=== PATIENT | female | born 1980 | race Caucasian/White ===

== ENCOUNTER → 2022-10-04 11:51 | Outpatient (CLI) | payer OTHER, SELFPAY ==
--- NOTE | ~2022-10-04 | MM_ITS ---
EXAMINATION: MM screening ananth BI w loren HISTORY: Screening TECHNIQUE: Craniocaudal and mediolateral oblique 3-D tomosynthesis images were obtained and synthetic 2-D images were generated. CAD analysis was submitted and interpreted. COMPARISON: No prior mammogram is available for comparison at this institution. BREAST PARENCHYMAL COMPOSITION: There are scattered areas of fibroglandular density. FINDINGS: There is no evidence of suspicious mass, calcification, or architectural distortion to sugg est malignancy in either breast. There has been no suspicious interval change. IMPRESSION: 1. No mammographic evidence of malignancy. 2. Recommend routine screening mammography in one year. BI-RADS Category 1: Negative Reviewed, dictated and finalized at location A. 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
== END ==
PROVIDERS: PCP Obstetrics & Gynecology; Visit Provider Obstetrics & Gynecology
DX: Z12.31 Encounter for screening mammogram for malignant neoplasm of breast (principal)
CPT/HCPCS: 77063; 77067

== ENCOUNTER 2024-01-17 11:04 | Outpatient (CLI) | payer OTHER, SELFPAY ==
--- NOTE | ~2024-01-17 | MM_ITS ---
EXAMINATION: MM screening ananth BI w loren HISTORY: Screening mammogram TECHNIQUE: Craniocaudal and mediolateral oblique 3-D tomosynthesis images were obtained and synthetic 2-D images were generated. Bilateral rotated lateral CC views. CAD analysis was submitted and interp reted. COMPARISON: October 04, 2022 bilateral screening mammogram BREAST PARENCHYMAL COMPOSITION: There are scattered areas of fibroglandular density. FINDINGS: There is no evidence of suspicious mass, calcification, or architectural distortion to sugg est malignancy in either breast. There has been no suspicious interval change. IMPRESSION: 1. No mammographic evidence of malignancy. 2. Recommend routine screening mammography in one year. BI-RADS Category 1: Negative Reviewed, dictated and finalized at location B.
== END 2024-01-17 11:05 ==
LOC: MICIMG 11:07
PROVIDERS: PCP Obstetrics & Gynecology; Visit Provider Obstetrics & Gynecology
DX: Z12.31 Encounter for screening mammogram for malignant neoplasm of breast (principal)
CPT/HCPCS: 77063; 77067

== ENCOUNTER 2025-05-19 13:40 | Outpatient (CLI) | payer OTHER, SELFPAY ==
--- NOTE | ~2025-05-19 | MM_ITS ---
EXAMINATION: MM screening ananth BI w loren HISTORY: Screening TECHNIQUE: Craniocaudal and mediolateral oblique 3-D tomosynthesis images were obtained and synthetic 2-D images were generated. CAD analysis was submitted and interpreted. COMPARISON: 10/04/2022 BREAST PARENCHYMAL COMPOSITION: There are scattered areas of fibroglandular density. FINDINGS: There is no evidence of suspicious mass, calcification, or architectural distortion in either breast to suggest malignancy. There has been no significant interval change. IMPRESSION: 1. No mammographic evidence of malignancy. Recommend routine screening mammography in one year. BI-RADS Category 1: Negative Reviewed, dictated and finalized at location Q. IMPRESSION: 1. No mammographic evidence of malignancy. Recommend routine screening mammogra phy in one year. BI-RADS Category 1: Negative
--- OUTSIDE RECORDS SUMMARY | 2025-05-19 13:42 | XMS_ITS | Clinical Summary ---
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 This disclosure is being madepursuant to the Care Everywhere program and may not contain all information available regarding this patient. Last updated 18.[facility] Preventes.fr Allergies No known active allergies Medications * Be aware that medications may not be up to date on this document. Alwaysverify current medications with the patient. No known medications Active Problems Patient Care Coordination No te Formatting of this note migh t be different from the original. Nopp/mfcc 11/2018 Problem Noted Date Diagnosed Date daughter w/ Rett syndrome 04/03/2018 Advanced maternal age in multigravida, second tr imester Screening, , for anatomic survey Encounter for screening for cervical l ength Immunizations Immunization Administration Dates Next Due INFLUENZA VACCINE, QUADR. (F LUZONE; FLULAVAL; FLUARIX; AFLURIA QUADRIVALENT; 6MO+), 0.5 ML (IIV4) 07/03/2018 TDAP (7yrs+) 03/02/2019 Social History Tobacco Use Types Packs/Day Years Used Date Smoking Tobacco: Never Assessed Comments No Sex and Gender Information Value Date Recorded Sex Assigned at Not on file Legal Sex Female 9:35 AM CDT Gender Identity Not on file Sexual Orientation Not on file Plan of Treatment Health Maintenance Due Date Last Done Comments COLOGUARD (AGES 45-75) - COL ON CA SCREENING 1979 COLON MONITORING 1979 COLONOSCOPY - COLON CA SCREENING 1979 CT COLONOGRAPHY - COLON CA SCREENING 1979 Colorectal Cancer Screening 1979 FIT - COLON CA SCREENING 1979 FLEX SIG - COLON CA SCREENING 1979 LIPID TESTING 1979 MAMMOGRAM 1979 HIV SCREENING 12/08/1994 HEPATITIS C SCREENING 12/04/1997 HEPATITIS B VACCINE (1 of 3 - 19+ 3-dose series) 12/08/1998 HPV VACCINE (1 - 3-dose SCDM series) 12/08/2006 DEPRESSION SCREENING 09/01/2024 COVID-19 VACCINE (2023-2 5 season) 2025 INFLUENZA VACCINE (#1) 2025 07/03/2018 DTAP/TDAP/TD VACCINES (2 - T d or Tdap) 03/02/2029 03/02/2019 ZOSTER VACCINE (1 of 2) 12/08/2029 HIB VACCINE Aged Out No longer eligi ble based on patient's age to complete this topic MENINGOCOCCAL (Group B) VACC INE SHARED DECISION-MAKING Aged Out No longer eligibl e based on patient's age to complete this topic MENINGOCOCCAL GROUPS A/C/Y/W VACCINE Aged Out No longer eligible b ased on patient's age to complete this topic PNEUMOCOCCAL VACCINE Aged Out No long er eligible based on patient's age to complete this topic Insurance AETNA AETNA
== END 2025-05-19 13:41 | disposition home or self-care (01) ==
PROVIDERS: PCP Obstetrics & Gynecology; Visit Provider Obstetrics & Gynecology
DX: Z12.31 Encounter for screening mammogram for malignant neoplasm of breast (principal)
CPT/HCPCS: 77063; 77067

== ENCOUNTER 2025-06-23 02:26 | Day surgery (SDC) | payer OTHER, SELFPAY ==
[2025-06-14 13:08] VITALS: BMI 26.5
[2025-06-23 11:02] VITALS: BP 130/80; PULSE 72; RESP 14; TEMP 36.5; O2SAT 100; BMI 25.4
[2025-06-23] MEDS: SIMETHICONE ORAL SUSPENSION 20 MG/0.3 ML 30 ML BOTTLE 1.8 ML PO (11:17)
[2025-06-23 11:18] LABS: BEDSIDEPREGUCG Negative (Negative)
[2025-06-23] MEDS: LACTATED RINGERS 1,000 ML 150 ML IV CONT (11:20)
--- NOTE | 2025-06-23 11:45 | P.PNAN_ITS ---
Anes - Initial Pre Proc Eval Procedure: Operation Date: 06/23/25 12:30 Proposed Procedures p EGD & Diagnostic Colonoscopy - Gavino Young MD Date/Time: 06/23/25 11:45 Surgeon: Gavino Young MD Pre Op Diagnosis: Diarrhea,Change in bowel habit,anemia Patient Data Age: 44 Gender: F Height: 1.57 m Weight: 63.2 kg Last Vital Signs Temp 97.7 F 06/23/25 11:02 Pulse 72 06/23/25 11:02 Resp 14 06/23/25 11:02 BP 130/80 06/23/25 11:02 Pulse Ox 100 06/23/25 11:02 O2 Del Method Room Air 06/23/25 11:02 Allergies Allergy/AdvReac Type Severity Reaction Status Date / Time No Known Allergies Allergy Verified 06/23/25 11:11 Home Medications ?Medication ?Instructions ?Recorded ?Confirmed ?Type norgestimate-ethinyl estradiol 1 tablet PO DAILY #84 t abs 04/11/25 06/23/25 Rx 0.18mg/0.215mg/0.25mg-0.035mg(28)tablet (Tri-Estarylla) Laboratory Tests 06/23/25 11:16 POC Urine HCG, Qual Negative (Negative) Patient hx anesthesia problems: none Family hx anesthesia problems: none Results Review: All pre-operative results and documents have been reviewed as part of the pre- operative evaluation. [facility] Family History Family History Father Diabetes mellitus Social History Social History Smoking status: Never smoker Alcohol intake: current Drinks per week: 2 Alcohol use details: social Substance use: never Substance use type: does not use Living arrangements: with family Spiritual care concerns: No Anes - Eval Final PreProcedure Day of Procedure 06/23/25 11:45 Patient weight: normal Lungs: normal air movement Airway: Mallampati scale class 1 Neurological: alert and oriented Last oral intake: >/= 8 hours ASA classification: I Emergent: no Anesthetic plan: proceed Anesthesia type and monitoring: general GIVS and standard monitoring Results Review: All pre-operative results and documents have been reviewed as part of the pre- operative evaluation. 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 Informed Consent: The patient's anesthetic plan and its attendant risks and benefits were discussed with the patient/family/POA. Questions were solicited and answers provided to the satisfaction of the patient/family/POA.
--- NOTE | 2025-06-23 12:24 | P.HP_ITS ---
H&P: HPI History of Present Illness Date/Time: 06/23/25 12:24 Chief Complaint: Positive serology for celiac disease-screening colonoscopy Narrative: Patient referred for EGD with the finding of a positive endomysial antibody. In addition she is due for her 1st screening colonoscopy. Review of Systems Review of Systems: All systems reviewed & are unremarkable except as noted in HPI and below PMFSH Family History Family History Father Diabetes mellitus Social History Social History Smoking status: Never smoker Alcohol intake: current Drinks per week: 2 Alcohol use details: social Substance use: never Substance use type: does not use Living arrangements: with family Spiritual care concerns: No Meds Home Medications and Allergies Home Medications ?Medication ?Instructions ?Recorded ?Confirmed ?Type norgestimate-ethinyl estradiol 1 tablet PO DAILY #84 t abs 04/11/25 06/23/25 Rx 0.18mg/0.215mg/0.25mg-0.035mg(28)tablet (Tri-Estarylla) Allergies Allergy/AdvReac Type Severity Reaction Status Date / Time No Known Allergies Allergy Verified 06/23/25 11:11 Vital Signs Vital Signs - 24 hr 06/23/25 11:02 Temperature 97.7 F Pulse Rate 72 Respiratory Rate 14 Blood Pressure 130/80 Pulse Oximetry 100 Oxygen Delivery Room Air Exam Const: General: cooperative and healthy appearing Resp: Effort & Inspection: normal respiratory effort and able to speak in complete sentences Auscultation: clear to auscultation bilaterally Cardio: Rate: regular rate Rhythm: regular rhythm GI: Inspection: normal to inspection GI Palp: No No hepatosplenomegaly present Auscultation: normal bowel sounds Rectal Exam: deferred Skin: General skin exam: normal color Psych: Appearance: grossly normal Mental Status: mental status grossly normal Assessment and Plan Assessment and plan (1) Positive autoantibody screening for celiac disease: Code(s): R76.89 - Other specified abnormal immunological findings in serum Status: Acute Assessment and Plan: The patient is deemed a good candidate for the procedures. Consent signed. Will proceed. (2) Encounter for screening colonoscopy: Code(s): Z12.11 - Encounter for screening for malignant neoplasm of colon Status: Acute
--- NOTE | 2025-06-23 12:36 | S_PTH ---
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
--- NOTE | 2025-06-23 12:39 | SUR.OPER ---
EGD ended at 1232. Colonoscopy started at 1237.
[2025-06-23 12:50] VITALS: BP 117/70; PULSE 70; RESP 19; O2SAT 100
[2025-06-23 13:00] VITALS: BP 130/83; PULSE 66; RESP 19; O2SAT 100
[2025-06-23 13:10] VITALS: BP 146/86; PULSE 65; RESP 19; O2SAT 100
== END 2025-06-23 13:45 | disposition home or self-care (01) ==
PROVIDERS: Referring Provider Nurse Practitioner; Visit Provider Internal Medicine Gastroenterology
PROC: 0DJ08ZZ Inspection of Upper Intestinal Tract, Via Natural or Artificial Opening Endoscopic (ICD-10-PCS; CPT 45378; principal; 2025-06-23 12:30)
DX: Z12.11 Encounter for screening for malignant neoplasm of colon (principal); R76.89 Other specified abnormal immunological findings in serum; K90.0 Celiac disease; K86.81 Exocrine pancreatic insufficiency
CPT/HCPCS: 43239; 45380; 88305; J2704; J7120